=== PATIENT | male | born 1945 | race Caucasian/White ===

== ENCOUNTER 2021-10-16 18:36 | Emergency (ER) | payer MEDICARE ==
[~2021-10-16] VITALS: Ht 182.9 cm; Wt 101.0 kg
--- NOTE | 2021-10-16 18:45 | PHYS DOC ---
General Adult HPI: HPI: ".. I got part of my hearing aid broke off in my ear... My tried to get it out and could not.. :" Patient is a 76 year old male who presents with above hx and complaints of object stuck in his Lt ear. It appears he has a cone shaped screen lodged up against his Lt TM. There is some excoriation from earlier attempts by his to remove the object. The pt. normally follows with Dr. Lewis. 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 Patient requesting removal of object. Risks of removal discussed with patient at length. With the use of a forceps was able to retrieve the object with minimal abrasion to ear canal. Patient to follow-up with his lead customer service representative for repair of his hearing aid. Avoid water in ear for the next 48 hours because of previous aspirations to canal by his . Patient is up-to-date with vaccinations. No recent travel. No history of immunosuppression. No specific ill contacts. Review of Systems: Review of Systems: Constitutional: Denies fever or chills Eyes: Denies change in visual acuity HENT: Denies nasal congestion or sore throat. Complains of hearing aid fractured off and left ear Respiratory: Denies cough or shortness of breath Cardiovascular: Denies chest pain or edema GI: Denies abdominal pain, nausea, vomiting, bloody stools or diarrhea : Denies dysuria Musculoskeletal: Denies back pain or joint pain Integument: Denies rash Neurologic: Denies headache, focal weakness or sensory changes Endocrine: Denies polyuria or polydipsia Lymphatic: Denies swollen glands Psychiatric: Denies depression or anxiety Family History: Family History: Noncontributory to presentation Current Medications: Current Meds: See nursing for home meds Allergies: Allergies: No known drug allergies Physical Exam: PE: Constitutional: Moderate acute distress, non-toxic appearance. [] HENT: Normocephalic, atraumatic, bilateral external ears normal, oropharynx moist, no oral exudates, nose normal. Has excoriations to left ear on previous removal attempts. Fractured portion of hearing aid Eyes: PERRLA, EOMI, conjunctiva normal, no discharge. [] Neck: Normal range of motion, no tenderness, supple, no stridor. [] Cardiovascular:Heart rate regular rhythm, no murmur [] Lungs & Thorax: Bilateral breath sounds equal at apex auscultation [] Abdomen: Bowel sounds normal, soft, no tenderness, no masses, no pulsatile masses. [] Skin: Warm, dry, no erythema, no rash. [] Back: No tenderness, no CVA tenderness. [] Extremities: No tenderness, no cyanosis, no clubbing, ROM intact, no edema. [] Neurologic: Alert and oriented X 3, normal motor function, normal sensory function, no focal deficits noted. Extremely hard of hearing Psychologic: Affect anxious judgement normal, mood normal. [] EKG: EKG: [] Radiology/Procedures: Radiology/Procedures: [] Heart Score: C/O Chest Pain: N/A Risk Factors: Risk Factors: DM, Current or recent (<one month) smoker, HTN, HLP, family history of CAD, obesity. Risk Scores: Score 0 - 3: 2.5% MACE over next 6 weeks - Discharge Home Score 4 - 6: 20.3% MACE over next 6 weeks - Admit for Clinical Observation Score 7 - 10: 72.7% MACE over next 6 weeks - Early Invasive Strategies Course & Med Decision Making: Course & Med Decision Making Pertinent Labs and Imaging studies reviewed. (See chart for details) Procedure note-removal of foreign body-see HPI Impression: 1. Fractured hearing aid [] Dragon Disclaimer: Dragon Disclaimer: This electronic medical record was generated, in whole or in part, using a voice recognition dictation system. Departure Departure: Referrals: BISI LEWIS MD (PCP) GWYN LEACH MD Oct 16, 2021 18:45
[2021-10-16 18:48] VITALS: BP 148/70
== END 2021-10-16 19:28 | disposition home or self-care (01) ==
LOC: ER 18:36
DX: T16.2XXA Foreign body in left ear, initial encounter (principal); S00.412A Abrasion of left ear, initial encounter; Z97.4 Presence of external hearing-aid; W22.8XXA Striking against or struck by other objects, initial encounter; Y93.89 Activity, other specified; Y92.89 Other specified places as the place of occurrence of the external cause; Y99.8 Other external cause status
CPT/HCPCS: 30300; 69200; 99284-25